=== PATIENT | female | born 1965 ===

== ENCOUNTER 2017-09-26 16:07 | Emergency (ER) | payer OTHER ==
[2015-03-11 11:49] VITALS: BMI 27.4
[2017-09-26 17:05] VITALS: BP 111/55; PULSE 79; RESP 16; TEMP 98.5; O2SAT 99
--- NOTE | 2017-09-26 18:54 | ED PDOC ---
HPI: Abdomen Time Seen by Provider: 09/26/17 18:36 Chief Complaint (Nursing): Abdominal Pain Chief Complaint (Provider): Abdominal Pain History Per: Patient History/Exam Limitations: no limitations Onset/Duration Of Symptoms: Days (x 10) Additional Complaint(s): 52 year old female with a medical history of ectopic presents to the ED complaining of lower abdominal pain and back pain, onset 10 days ago. The pain is constant. Denies fever, nausea, vomiting, diarrhea, constipation, vaginal bleeding and discharge and any urinary symptoms. PMD: Dr. Bruno Jordan Past Medical History Reviewed: Historical Data, Nursing Documentation, Vital Signs Vital Signs: Last Vital Signs Temp 98.5 F 09/26/17 17:02 Pulse 79 09/26/17 17:02 Resp 16 09/26/17 17:02 BP 111/55 L 09/26/17 17:02 Pulse Ox 99 09/26/17 19:12 - Medical History PMH: Other PMH: Ectopic - Surgical History Surgical History: No Surg Hx - Family History Family History: States: Unknown Family Hx - Home Medications Home Medications: Ambulatory Orders Medication Instructions Recorded Vitamin E 100 iu PO DAILY 03/11/15 - Allergies Allergies/Adverse Reactions: Allergies Allergy/AdvReac Type Severity Reaction Status Date / Time No Known Allergies Allergy Verified 03/11/15 11:49 Review of Systems ROS Statement: Except As Marked, All Systems Reviewed And Found Negative Constitutional: Negative for: Fever Gastrointestinal: Positive for: Abdominal Pain (lower ). Negative for: Nausea, Vomiting, Diarrhea, Constipation Genitourinary Female: Negative for: Dysuria, Frequency, Incontinence, Hematuria , Vaginal Discharge, Vaginal Bleeding Musculoskeletal: Positive for: Back Pain Physical Exam - Reviewed Nursing Documentation Reviewed: Yes Vital Signs Reviewed: Yes - Physical Exam Appears: Positive for: Non-toxic, No Acute Distress Head Exam: Positive for: ATRAUMATIC, NORMOCEPHALIC Skin: Positive for: Normal Color, Warm, Dry Eye Exam: Positive for: EOMI, Normal appearance, PERRL Neck: Positive for: Normal, Painless ROM, Supple Cardiovascular/Chest: Positive for: Regular Rate, Rhythm. Negative for: Murmur Respiratory: Positive for: Normal Breath Sounds. Negative for: Respiratory Distress Gastrointestinal/Abdominal: Positive for: Tenderness (mild suprapubic lower left quadrant). Negative for: Guarding, Rebound Back: Positive for: Normal Inspection Extremity: Positive for: Normal ROM. Negative for: Deformity Neurologic/Psych: Positive for: Alert, Oriented. Negative for: Motor/Sensory Deficits - ECG O2 Sat by Pulse Oximetry: 99 (RA) Pulse Ox Interpretation: Normal Medical Decision Making Medical Decision Making: Time: 18:45 Impression: abdominal and back pain Initial Plan: --Abdomen/ Pelvis CT --EKG --CMP --Urine --Urine dip --CBC with differentials --Urinalysis Scribe Attestation: Documented by Marzena Hunter, acting as a scribe for Nikkie Baer MD. Provider Scribe Attestation: All medical record entries made by the Scribe were at my direction and personally dictated by me. I have reviewed the chart and agree that the record accurately reflects my personal performance of the history, physical exam, medical decision making, and the department course for this patient. I have also personally directed, reviewed, and agree with the discharge instructions and disposition. Disposition - Clinical Impression Clinical Impression: Abdominal pain - Disposition Disposition: Eloped Disposition Time: 19:35 Condition: UNKNOWN
== END 2017-09-26 19:55 | disposition left against medical advice (07) ==
LOC: H.ER 16:07
DX: R10.9 Unspecified abdominal pain (principal)